=== PATIENT | female | born 1955 | race Caucasian/White ===

== ENCOUNTER 2016-07-06 06:16 | Inpatient (IN) | payer BC ==
[2016-06-22 09:48] VITALS: BMI 26.0
--- NOTE | 2016-06-22 10:26 | PAT Medication Instructions ---
Service Date Jun 22, 2016. Current Home Medication List Acetaminophen Tab (Tylenol), 650 MG PO Q6 PRN for Pain Albuterol (Proair Hfa), 2 PUFFS INH Q4-6H PRN for PRN Budesonide/Formoterol Fumarate (Symbicort 160/4.5 Inhaler ), 2 PUFFS INH BID Escitalopram (Lexapro), 20 MG PO QAM Hydrocodone/Acetaminophen 5MG/325MG (Covert 5MG/325MG), 1 TABLET PO HS PRN for Pain Lorazepam (Ativan), 0.5 MG PO BID PRN for PRN Montelukast Sodium (Singulair), 10 MG PO QAM Naproxen (Aleve), 220 MG PO BID Omeprazole (Prilosec), 20 MG PO QAM Medication Instructions For Your Scheduled Surgery - Hold the following medications 7-10 days prior to surgery per surgeon instructions: Naproxen (Aleve), 220 MG PO BID - Take the following medications the morning of surgery with a sip of water: Omeprazole (Prilosec), 20 MG PO QAM Montelukast Sodium (Singulair), 10 MG PO QAM Lorazepam (Ativan), 0.5 MG PO BID PRN for PRN (if needed) Escitalopram (Lexapro), 20 MG PO QAM Budesonide/Formoterol Fumarate (Symbicort 160/4.5 Inhaler ), 2 PUFFS INH BID Albuterol (Proair Hfa), 2 PUFFS INH Q4-6H PRN for PRN (bring with you to hospital on day of surgery) Acetaminophen Tab (Tylenol), 650 MG PO Q6 PRN for Pain (if needed) - Take the following medications as scheduled the night before surgery: Lorazepam (Ativan), 0.5 MG PO BID PRN for PRN Hydrocodone/Acetaminophen 5MG/325MG (Covert 5MG/325MG), 1 TABLET PO HS PRN for Pain Budesonide/Formoterol Fumarate (Symbicort 160/4.5 Inhaler ), 2 PUFFS INH BID Albuterol (Proair Hfa), 2 PUFFS INH Q4-6H PRN for PRN Acetaminophen Tab (Tylenol), 650 MG PO Q6 PRN for Pain If you have any questions please call us at [phone] or [phone] ( [place]) or [phone]
[2016-06-22 10:59] LABS: BASO % 0.6 %; BASO ABS # 0.04 K/uL (0-0.2); COMPLETE YES; EOS % 0.9 %; HEMATOCRIT 40.4 % (37-47); IG% 0.1 %; LYMPH % 40.8 %; LYMPH ABS # 2.72 K/uL (1.2-3.4); MEAN CELL VOLUME 92.4 fL (80-100); MEAN CORPUSCULAR HGB CONC 34.7 g/dl (32-36); MEAN PLATELET VOLUME 9.8 fL (7.4-10.4); MONO % 4.2 %; NEUT % 53.4 %; PLATELET COUNT 259 K/uL (130-400); RED BLOOD COUNT 4.37 M/uL (4.2-5.4); WHITE BLOOD COUNT 6.67 K/uL (4.8-10.8)
[2016-06-22 11:07] LABS: URINE APPEARANCE CLEAR (CLEAR); URINE BILIRUBIN NEG (NEG); URINE COLOR YELLOW; URINE EPITHELIAL CELL AUTO 0-5 /lpf (0-5); URINE NITRITE NEG (NEG); URINE SPECIFIC GRAVITY 1.004 (1.000-1.030); UROBILINOGEN NEG (NEG)
--- NOTE | 2016-06-22 11:08 | DIAGNOSTIC IMAGING REPORT ---
CHEST PREADMISSION(PA/LAT) CLINICAL HISTORY: Preoperative chest COMPARISON STUDY: No previous studies for comparison. FINDINGS: The cardiac and mediastinal contours are normal. There is no evidence of focal pulmonary consolidation. There is no evidence of failure. No pleural effusions are visualized.[ IMPRESSION: No active disease in the chest. Electronically signed by: Domingo Garza M.D. 06/22/2016 11:06 AM Dictated Date/Time: 06/22/2016 11:06 AM
[2016-06-22 11:12] LABS: MANUAL MICROSCOPIC REQUIRED? NO; REVIEW REQ? NO
[2016-06-22 11:15] LABS: PROTHROMBIN TIME (PATIENT) 10.9 SECONDS (9.0-12.0)
[2016-06-22 11:23] LABS: BUN/CREATININE RATIO 13.3 (10-20); CREATININE 0.66 mg/dl (0.60-1.20); POTASSIUM 4.2 mmol/L (3.5-5.1)
[2016-06-22 11:48] LABS: ESTIMATED AVERAGE GLUCOSE 128 mg/dl; HA1C FLAG Normal (Normal)
--- NOTE | 2016-07-05 08:46 | HISTORY & PHYSICAL EXAMINATION ---
DATE OF ADMISSION: 07/06/2016 CHIEF COMPLAINT: Left hip pain. HISTORY OF PRESENT ILLNESS: The patient is a 60-year-old female with known osteoarthritis about her left hip. She had a recent intraarticular corticosteroid injection with short term relief. She continues to have pain and disability with activities of daily living. She has pain with prolonged weightbearing and standing activities. She has difficulty with any kneeling, bending, or squatting activities. She now desires to proceed with left total hip arthroplasty. PAST MEDICAL HISTORY: Asthma, depression, acid reflux, breast cancer. PAST SURGICAL HISTORY: Bunionectomy, tonsillectomy, tubal ligation, left breast surgery. MEDICATIONS: Omeprazole, Lexapro, lorazepam 0.5 mg t.i.d. p.r.n., Singulair daily, Tylenol p.r.n., Aleve p.r.n. ALLERGIES: LATEX ALLERGY. SOCIAL HISTORY AND REVIEW OF SYSTEMS: Noncontributory. PHYSICAL EXAMINATION: GENERAL: Well-nourished, well-developed female who appears stated age. HEENT: Normocephalic, atraumatic, extraocular movements intact, oropharynx pink and moist. NECK: Supple without adenopathy. LUNGS: Clear to auscultation bilaterally. HEART: Regular rate and rhythm. ABDOMEN: Soft, nontender, nondistended. EXTREMITIES: The upper extremities are within normal limits. Left hip demonstrates limited range of motion. There is limitation of active and passive internal/external rotation with pain at end range. X-RAYS: X-rays were reviewed. Her left hip demonstrates moderate to severe osteoarthritis with near complete loss of the joint space. There is a superior osteophyte about the acetabulum. ASSESSMENT: Left hip degenerative joint disease. PLAN: Risks versus benefits were discussed. Consent was obtained. The patient's primary care physician is Dr. Oxana Otto from [facility]. Will proceed with left total hip arthroplasty upon preoperative workup and medical clearance.
[~2016-07-06] VITALS: Ht 165.1 cm; Wt 71.6 kg
[2016-07-06] VITALS (11 sets, daily range): BP systolic 90–120; BP diastolic 58–69; PULSE 54–83; TEMP 36.4–37.1; O2SAT 95–100; Ht 165.1 cm; Wt 71.6 kg
[~2016-07-06 06:16] MED LIST: ACET325T96 PO; ACETAMINOPHEN 500 MG TAB PO SCH; ALBU1AER9 INH; CEFAZOLIN 1000MG/55 ML D5W 55 ML IV SCH; CeleBREX 200 MG CAP PO SCH; DEXAMETHASONE 4 MG TAB PO SCH; ESCI10TA17 PO; FAMOTIDINE 20 MG TAB PO SCH; GABAPENTIN 300 MG CAP PO SCH; HYDR-5688 PO; LACTATED RINGER'S 1000ML 1,000 ML IV SCH; LACTATED RINGER'S 1000ML 500 ML IV ONE; LACTATED RINGER'S 1000ML IV SCH; LORA-741 PO; METOCLOPRAMIDE HCL 10 MG TAB PO SCH; MONT1TAB3 PO; NAPR1TAB9 PO; PRLSR20 PO; ROPIVACAINE 5MG/ML 30 ML 150 MG, BUPIVACAINE/EPINEPHR 0.5% MPF 30 ML, KETOROLAC TROMETH... INFIL SCH; SYMIN160 INH
[2016-07-06] MEDS ORDERED: BUPIVACAINE 0.5 % 5 MG/1 ML PF 10ML VIAL ONE (06:23)
[2016-07-06] MEDS: TRANEXAMIC ACID INJ 1,000 MG in SODIUM CHLORIDE 0.9% 100ML 100 ML IV SCH ×2 (06:30→07:17)
--- NOTE | 2016-07-06 07:31 | History & Physical Bridge Note ---
H&P Re-Evaluation Bridge Note: I have examined the patient, reviewed the History & Physical and in the interval since the performance of the History & Physical I have noted the following changes of clinical significance: No changes noted
[2016-07-06] MEDS ORDERED: PROPOFOL IV EMULSION 10 MG/ML 20 ML VIAL IV ONE (07:58)
[2016-07-06] MEDS ORDERED: LIDOCAINE HCL 2% 2 ML VIAL (20MG/ML) ONE (07:58)
[2016-07-06] MEDS ORDERED: BACITRACIN 50000 UNIT VIAL ONE (07:58)
[2016-07-06] MEDS ORDERED: POVIDONE-IODINE OP SOLN 30 ML BTL ONE (07:58)
[2016-07-06] MEDS ORDERED: FENTANYL CITRATE INJ 50 MCG/1 ML 2 ML VIAL ONE (07:58)
[2016-07-06] MEDS ORDERED: ORTHO JOINT ANESTHETIC ONE (07:58)
[2016-07-06] MEDS ORDERED: MIDAZOLAM HCL 1 MG/ML 2ML VIAL ONE ×2 (07:58→08:27)
[2016-07-06] MEDS ORDERED: EpHEDrine SULFATE INJ 50 MG/ML AMP ONE (08:30)
[2016-07-06] MEDS ORDERED: ONDANSETRON INJ 2 MG/ML 2 ML VIAL IV PRN ×2 (08:45→09:30)
[2016-07-06] MEDS ORDERED: MEPERIDINE HCL 25 MG/ML CARP IV PRN (08:45)
[2016-07-06] MEDS ORDERED: MoRPHine SULFATE 10 MG/ML CARP/VIAL IV PRN ×2 (08:45→11:45)
[2016-07-06] MEDS ORDERED: FENTANYL CITRATE INJ 50 MCG/1 ML 2 ML VIAL IV PRN (08:45)
[2016-07-06] MEDS ORDERED: ATROPINE SULFATE 0.1 MG/ML 5ML SYR IV PRN (08:45)
[2016-07-06] MEDS ORDERED: EpHEDrine SULFATE INJ 50 MG/ML AMP IV PRN (08:45)
--- NOTE | 2016-07-06 08:59 | [facility] Post Operative Brief Note ---
Immediate Operative Summary Operative Date Jul 06, 2016. Pre-Operative Diagnosis Left Hip Degenerative Joint Disease Post-Operative Diagnosis Left Hip Degenerative Joint Disease Procedure(s) Performed Left Total Hip Arthroplasty Surgeon Dr. Kristian Carrington Stone Driller Surgeon(s) Ralph Ayala PA-C Estimated Blood Loss 50ml Findings oa Specimens A. Left Femoral Head Disposition Recovery Room / PACU
[2016-07-06] MEDS ORDERED: TRAMADOL HCL 50 MG TAB PO PRN (09:30)
[2016-07-06] MEDS ORDERED: ALBUTEROL HFA 8 GM INHALER INH PRN (09:30)
[2016-07-06] MEDS ORDERED: ALUMINUM/MAGNESIUM/SIMETH (MAALOX MAX) 30 ML UDC PO PRN (09:30)
[2016-07-06] MEDS ORDERED: MAGNESIUM HYDROXIDE SUSP 30 ML UDC PO PRN (09:30)
[2016-07-06] MEDS ORDERED: ZOLPIDEM TARTRATE 5 MG TAB PO PRN (09:30)
[2016-07-06] MEDS ORDERED: MoRPHine SULFATE 2 MG/ML CARP IV PRN (09:30)
[2016-07-06] MEDS ORDERED: METOCLOPRAMIDE HCL INJ 5 MG/ML 2 ML VIAL IV PRN (09:30)
--- NOTE | 2016-07-06 10:18 | DIAGNOSTIC IMAGING REPORT ---
AP PELVIS, CROSSTABLE LATERAL LEFT HIP History: Left total hip arthroplasty. Degenerative arthritis. Postop. FINDINGS: The patient is status post a left total hip arthroplasty. The hardware is intact. No fracture or dislocation. Skin katja and surgical drains are in place. IMPRESSION: Left total hip arthroplasty. No evidence for hardware complication. Electronically signed by: Sebastian Main M.D. 07/06/2016 10:16 AM Dictated Date/Time: 07/06/2016 10:16 AM
--- NOTE | 2016-07-06 10:21 | OPERATIVE REPORT ---
DATE OF OPERATION: 07/06/2016 PREOPERATIVE DIAGNOSIS: Osteoarthritis left hip. POSTOPERATIVE DIAGNOSIS: Osteoarthritis left hip. PROCEDURE: Left connective total hip arthroplasty. SURGEON: Dr. Carrington. CHILD DEVELOPMENT PROFESSOR: Ralph Ayala PA-C. ANESTHESIA: Spinal. COMPLICATIONS: None. OPERATION AND FINDINGS: PROCEDURE: Following induction of adequate spinal anesthesia, the patient was placed in right lateral decubitus position and a left Mita-Langenbeck incision was made. Subcutaneous tissue was sharply dissected. Electrocautery used for hemostasis. The fascia was incised throughout the length of the wound and a vallejo scissor placed beneath the short external rotators. The pyriformis was tagged with #1 Vicryl. The short external rotators were divided from the posterior aspect of the femur using electrocautery. These were swept posteriorly. A T-capsulotomy incision was made and the hip was dislocated using a combination of flexion, adduction, and internal rotation. Exposure of the femoral neck with old-style Hohmann and a blunt Hohmann was carried out and a femoral rasp was utilized as a guide for making the appropriate level femoral neck cut. This bone fragment was removed and reserved on the back table. Next, attention was turned to the acetabulum where bone hook was used to retract the femur while the offset retractors were placed anterior and posteriorly. A double-angled Hohmann was placed in superior and anterior position exposing the acetabulum nicely. Acetabular labrum as well as posterior capsule elements were removed using a long knife and a long pickup. Fovea centralis was cleared of all soft tissue. Sequential reamings were carried up to a size 50 and decision was made to proceed with impaction of a size 50 trabecular metal cup. This was impacted and held using a single 35 mm bone screw. The acetabular liner was placed with 15 of elevated posterior wall in the superior and posterior position. Next, attention was turned to the femoral portion of the case where a Bovie and pickup was used to further clear short external rotators from their insertion on the femur. Box osteotome was used to gain access to the femoral canal and the T-handled rasp and a rattail rasp were used to further open and lateral the canal. Sequentially raspings were carried up to a size 3 which gave good fit and fill of the proximal femur. A trial reduction was carried out and 127 degree offset femoral neck component was chosen as the size to be used. A -2.5 x 36 mm ceramic femoral head was impacted into position, +0 head was utilized. The trial reduction was stable in all degrees of rotation with no [id number] impingement. The hip was dislocated. The trial components were removed and the final femoral stem, neck, and femoral head combination were assembled on the back table and impacted into position. Hip was relocated. Range of motion checked once again successful and the wound was irrigated. The pyriformis repaired to the greater trochanter using #1 Vicryl [id number] suture. A Hemovac drain was placed and the fascia was closed using #1 Vicryl, subcutaneous tissue was closed using 0 Dexon, and skin was closed with katja. Sterile dressing of Adaptic, 4 x 4's, ABDs, and foam tape was applied. The patient tolerated the procedure well. Recovery room stable. Due to the complex nature of the procedure, the entire surgery was performed with the operational assistance of Ralph Ayala PA-C. The housing assistant, under direct supervision, was involved in the actual performance of all aspects of the surgical procedure including hemostasis, tissue retraction and incision, instrument management, patient positioning, and wound closure. I attest to the content of the Intraoperative Record and any orders documented therein. Any exceptio ns are noted below.
--- NOTE | 2016-07-06 10:41 | Anesthesiology Progress Note ---
Anesthesia Post Op Note Date & Time Jul 06, 2016 at 10:40 Vital Signs Pain Intensity: 0 Vital Signs Past 12 Hours Date Time Temp Pulse Resp B/P Pulse Ox O2 Delivery O2 Flow Rate FiO2 07/06/16 10:25 37.0 74 12 99/61 96 Nasal Cannula 2 07/06/16 10:15 74 19 96/60 93 Nasal Cannula 2 07/06/16 10:05 73 18 98/57 95 Nasal Cannula 2 07/06/16 09:55 71 16 88/60 98 Nasal Cannula 2 07/06/16 09:45 75 16 95/57 98 Mask 10 07/06/16 09:35 81 19 86/61 98 Mask 10 07/06/16 09:26 36.8 84 20 93/64 100 Mask 10 07/06/16 06:47 36.5 70 18 105/60 96 Room Air Notes Mental Status: alert / awake / arousable, participated in evaluation Pt Amnestic to Procedure: Yes Nausea / Vomiting: adequately controlled Pain: adequately controlled Airway Patency, RR, SpO2: stable & adequate BP & HR: stable & adequate Hydration State: stable & adequate Neuraxial Anesthesia: was administered, sensory block is resolving Anesthetic Complications: no major complications apparent
[2016-07-06] MEDS ORDERED: MoRPHine SULFATE 4 MG/ML 1 ML CARP\\VIAL IV PRN (11:45)
[2016-07-06] MEDS: D5W AND 1/2NSS + 20MEQ KCL 1,000 ML IV SCH ×2 (12:53→21:13)
[2016-07-06] MEDS: KETOROLAC TROMETHAMINE 30 MG/ML VIAL IV. SCH ×3 (12:54→23:16)
[2016-07-06] MEDS: FERROUS GLUCONATE 324 MG TAB PO SCH ×2 (12:54→17:50)
[2016-07-06] MEDS: CEFAZOLIN IV 1,000 MG in DEXTROSE 5% 50ML 50 ML IV SCH ×2 (15:59→23:16)
[2016-07-06] MEDS: HYDROCODONE/ACETAMOPHEN 5/325MG TAB PO PRN ×2 (16:01→21:15)
[2016-07-06] MEDS: BUDESONIDE/FORMOTEROL FUMARATE 160/4.5 60 PUFFS/INHALER INH SCH (21:11)
[2016-07-06] MEDS: DOCUSATE SODIUM 100 MG CAP PO SCH (21:12)
[2016-07-06] MEDS: PREGABALIN 75 MG CAP PO SCH (21:12)
[2016-07-06] MEDS: ASPIRIN 81 MG ECTAB PO SCH (21:12)
[2016-07-06] MEDS: LORAZEPAM 0.5 MG TAB PO PRN (21:16)
[2016-07-07 03:25] VITALS: BP 92/56; PULSE 61; TEMP 36.8; O2SAT 94
[2016-07-07] MEDS: KETOROLAC TROMETHAMINE 30 MG/ML VIAL IV. SCH (05:48)
[2016-07-07 06:22] LABS: COMPLETE YES; EOS % 0.1 %; HEMATOCRIT 34.7 % (37-47); IG% 0.3 %; LYMPH % 16.5 %; LYMPH ABS # 2.17 K/uL (1.2-3.4); MEAN CORPUSCULAR HEMOGLOBIN 31.8 pg (25-34); MEAN CORPUSCULAR HGB CONC 34.6 g/dl (32-36); MEAN PLATELET VOLUME 9.8 fL (7.4-10.4); MONO % 3.6 %; NEUT % 79.5 %; PLATELET COUNT 215 K/uL (130-400); RED BLOOD COUNT 3.77 M/uL (4.2-5.4); WHITE BLOOD COUNT 13.17 K/uL (4.8-10.8)
[2016-07-07 06:59] LABS: BUN/CREATININE RATIO 12.4 (10-20); CALCIUM 8.7 mg/dl (8.5-10.1); CREATININE 0.79 mg/dl (0.60-1.20); POTASSIUM 4.1 mmol/L (3.5-5.1)
[2016-07-07 07:02] VITALS: BP 109/66; PULSE 62; TEMP 36.9; O2SAT 92
[2016-07-07] MEDS ORDERED: DEXAMETHASONE INJ 10 MG in SYRINGE 0 ML IV ONE (07:30)
[2016-07-07] MEDS: D5W AND 1/2NSS + 20MEQ KCL 1,000 ML IV SCH (07:54)
--- NOTE | 2016-07-07 07:57 | Orthopedic Progress Note ---
Orthopedic Progress Note Date of Service Jul 07, 2016. Subjective Post OP Day: 1 Reports: feeling well Objective calves soft nontender, N/V intact, dressing C/D/I (Hemovac d/c'd), toes mobile Date Time Temp Pulse Resp B/P Pulse Ox O2 Delivery O2 Flow Rate FiO2 07/07/16 07:02 36.9 62 17 109/66 92 Room Air 07/07/16 03:25 36.8 61 14 92/56 94 Room Air 07/06/16 23:25 36.4 54 16 107/65 98 Room Air 07/06/16 19:45 Room Air 07/06/16 19:36 36.5 75 18 120/62 96 Room Air 07/06/16 15:08 36.8 82 18 108/58 97 Nasal Cannula 2.0 07/06/16 13:45 76 16 93/62 95 Nasal Cannula 2.0 07/06/16 12:45 36.6 83 18 100/63 96 Nasal Cannula 2.0 07/06/16 11:45 37.1 82 19 108/69 95 Nasal Cannula 2.0 07/06/16 11:15 36.5 77 18 105/69 96 Nasal Cannula 2.0 07/06/16 11:15 Nasal Cannula 2.0 07/06/16 11:10 100 Nasal Cannula 2.0 07/06/16 10:45 36.4 77 16 90/59 100 Nasal Cannula 2.0 07/06/16 10:35 77 14 97/57 94 Nasal Cannula 2 07/06/16 10:25 37.0 74 12 99/61 96 Nasal Cannula 2 07/06/16 10:15 74 19 96/60 93 Nasal Cannula 2 07/06/16 10:05 73 18 98/57 95 Nasal Cannula 2 07/06/16 09:55 71 16 88/60 98 Nasal Cannula 2 07/06/16 09:45 75 16 95/57 98 Mask 10 07/06/16 09:35 81 19 86/61 98 Mask 10 07/06/16 09:26 36.8 84 20 93/64 100 Mask 10 Laboratory Results 24 Hours: Test 07/07/16 05:47 White Blood Count 13.17 K/uL Red Blood Count 3.77 M/uL Hemoglobin 12.0 g/dL Hematocrit 34.7 % Mean Corpuscular Volume 92.0 fL Mean Corpuscular Hemoglobin 31.8 pg Mean Corpuscular Hemoglobin Concent 34.6 g/dl Platelet Count 215 K/uL Mean Platelet Volume 9.8 fL Neutrophils (%) (Auto) 79.5 % Lymphocytes (%) (Auto) 16.5 % Monocytes (%) (Auto) 3.6 % Eosinophils (%) (Auto) 0.1 % Basophils (%) (Auto) 0.0 % Neutrophils # (Auto) 10.47 K/uL Lymphocytes # (Auto) 2.17 K/uL Monocytes # (Auto) 0.48 K/uL Eosinophils # (Auto) 0.01 K/uL Basophils # (Auto) 0.00 K/uL Assessment & Plan Assessment: 60 yo female stable POD #1 s/p left VALDEZ Plan: 1. Med management 2. DVT prophylaxis- ASA, TEDs, SCDs 3. PT/OT 4. D/C planning- home w/ OPPT
[2016-07-07] MEDS ORDERED: HYDR-5688 PO (08:03)
[2016-07-07] MEDS ORDERED: ASPEC81 PO (08:03)
[2016-07-07] MEDS ORDERED: CLB200 PO (08:03)
[2016-07-07] MEDS ORDERED: ONDA8TAB12 PO (08:03)
--- NOTE | 2016-07-07 08:05 | Discharge Instructions ---
Discharge Instructions Date of Service Jul 07, 2016. Admission Reason for Admission: Left Hip Osteoarthritis Discharge Discharge Diagnosis / Problem: Left hip arthritis Discharge Goals Goal(s): Decrease discomfort, Improve function Activity Recommendations Activity Limitations: as noted below Weightbearing Status: Left weightbearing (as tolerated) . Instructions / Follow-Up Instructions / Follow-Up ACTIVITY RECOMMENDATIONS: SELF CARE INSTRUCTIONS AFTER TOTAL HIP REPLACEMENT Until the incision and soft tissues around your hip have healed, there is a possibility that the hip prosthesis could dislocate. A. Observe the following precautions to prevent dislocation: 1. Don't bend your hip greater than 90 degrees. 2. Avoid crossing your legs or ankles while standing or lying. 3. Sit with your feet placed 6 inches apart. 4. When sitting, keep your knees below your hips. Sit on a firm surface, avoid deep, soft chairs and couches. Use an elevated toilet seat in the bathroom. 5. Don't bend over at the waist. Use a long handled shoehorn and a sock aid to help you put on your shoes and socks. A payroll administrative assistant can help you pickling tank operator objects that are too high or too low to reach. 6. Keep car riding to a minimum for at least one month after surgery. B. Your balance may be shaky for a while. Use crutches or a walker until directed by your doctor. C. Use hand rails when walking on stairs. D. Wear low heeled shoes with non-slip soles. E. Be sure that your floors are free of things that could trip you - throw rugs , electrical cords, small objects. Avoid wet and waxed floors, especially with crutches and canes. F. Try to walk several times a day with rest periods between. G. Continue with all the exercises taught to you in the hospital. Again, make walking a part of your daily routine. SPECIAL CARE INSTRUCTIONS: VERY IMPORTANT TO READ AND REVIEW A. You may still be at risk for phlebitis and blood clots. 1. Wear surgical stockings (DIANA hose) for 2 weeks after surgery to improve circulation and reduce swelling. 2. Take Aspirin 81mg twice daily for 4 weeks or as directed by your doctor. This is your blood thinner. 3. High risk patients may be prescribed a stronger blood thinner if necessary. 4. If you are on Coumadin normally, your family doctor/level vial marker should monitor your blood work. Expect a phone call the day of or the day after bloodwork is drawn to adjust your dosage. B. You must take antibiotics before having dental work, bladder, bowel and other surgery. Your doctor will provide you with a permanent card to carry describing precautions. C. Call [facility] if you have a fever, redness or swelling around the incision, cloudy drainage from incision, or sudden increase in pain in your hip, not relieved by your regular pain medication. D. Please call the office at if you have any concerns or questions about your operation or recovery. * YOU MAY SHOWER, NO TUB BATHS UNTIL CLEARED BY YOUR DOCTOR. * WEAR DIANA HOSE 20 HOURS PER DAY FOR 2 WEEKS. * YOU SHOULD USE A WALKER OR CRUTCHES FOR 2-4 WEEKS. THIS WILL HELP PREVENT STRAIN ON YOUR HIP MUSCLE AND ALLOW IT TO HEAL PROPERLY. YOU MAY WEAN TO A CANE TOLERATED. * MOST PATIENTS WILL HAVE HOME NURSING FOR THERAPY. IF YOU DECIDE TO DO OUTPATIENT PHYSICAL THERAPY, PLEASE SCHEDULE THIS 3 TIMES PER WEEK. Silverlon- This is a large adhesive bandage that contains silver ions. This helps your incision heal by fighting off bacteria and protecting it from the outside environment. You are permitted to shower with this dressing. This will remain on your incision for 7 days and then should be removed. Some visible blood or drainage through the dressing window is normal. If there is significant drainage or leaking noted before the 7 days notify your doctor's office immediately. Once removed, keep incision clean and dry. If there is any drainage or redness noted, please call your surgeon. FOLLOW UP VISIT: If appointment is not already scheduled: Please call [facility] to make a follow-up appointment for 2 weeks after your surgery at . Current Hospital Diet Patient's current hospital diet: Regular Diet Discharge Diet Recommended Diet: Regular Diet Procedures Procedures Performed: Left Total Hip Arthroplasty Pending Studies Studies pending at discharge: no Laboratory Results Hemoglobin A1c Test 06/22/16 00:00 Range/Units Estimated Average Glucose 128 mg/dl Hemoglobin A1c 6.1 H 4.5-5.6 % Medical Emergencies . Who to Call and When: Medical Emergencies: If at any time you feel your situation is an emergency, please call 911 immediately. . Non-Emergent Contact Non-Emergency issues call your: Surgeon Call Non-Emergent contact if: temperature is above 101.5, your pain is not controlled, wound has increased drainage, wound has increased redness . "Provider Documentation" section prepared by Ralph Ayala PA-C. VTE Core Measure Inpt VTE Proph given/why not?: Other Anticoagulation (ASA 81mg bid), T.E.D. Stockings, SCD's [place] Drug Monitoring Program Search Results: patient reviewed within database, no issues identified
--- NOTE | 2016-07-07 08:27 | Anesthesiology Progress Note ---
Anesthesia Post Op Note Date & Time Jul 07, 2016 at 08:26 Vital Signs Pain Intensity: 7.0 Vital Signs Past 12 Hours Date Time Temp Pulse Resp B/P Pulse Ox O2 Delivery O2 Flow Rate FiO2 07/07/16 07:02 36.9 62 17 109/66 92 Room Air 07/07/16 03:25 36.8 61 14 92/56 94 Room Air 07/06/16 23:25 36.4 54 16 107/65 98 Room Air Notes Mental Status: alert / awake / arousable, participated in evaluation Pt Amnestic to Procedure: Yes Nausea / Vomiting: adequately controlled Pain: adequately controlled Airway Patency, RR, SpO2: stable & adequate BP & HR: stable & adequate Hydration State: stable & adequate Neuraxial Anesthesia: sensory block resolved Anesthetic Complications: no major complications apparent
[2016-07-07] MEDS ORDERED: ESCITALOPRAM OXALATE 10 MG TAB PO SCH (09:00)
[2016-07-07] MEDS ORDERED: MULTIVITAMIN TAB PO SCH (09:00)
[2016-07-07] MEDS ORDERED: MONTELUKAST SOD 10 MG TAB PO SCH (09:00)
[2016-07-07] MEDS ORDERED: PANTOprazole SOD 40 MG TAB PO SCH (09:00)
[2016-07-07] MEDS: FERROUS GLUCONATE 324 MG TAB PO SCH ×2 (09:31→15:13)
[2016-07-07] MEDS: BUDESONIDE/FORMOTEROL FUMARATE 160/4.5 60 PUFFS/INHALER INH SCH (09:32)
[2016-07-07] MEDS: DOCUSATE SODIUM 100 MG CAP PO SCH (09:32)
[2016-07-07] MEDS: ASPIRIN 81 MG ECTAB PO SCH (09:32)
[2016-07-07] MEDS: PREGABALIN 75 MG CAP PO SCH (09:37)
[2016-07-07] MEDS: LORAZEPAM 0.5 MG TAB PO PRN (09:37)
[2016-07-07 12:19] VITALS: BP 109/66; PULSE 62; TEMP 36.9; O2SAT 92
[2016-07-07] MEDS: HYDROCODONE/ACETAMOPHEN 5/325MG TAB PO PRN (15:14)
[2016-07-07] MEDS ORDERED: CeleBREX 200 MG CAP PO SCH (21:00)
--- NOTE | 2016-07-19 16:49 | DISCHARGE SUMMARY ---
CHIEF COMPLAINT: Left hip pain. Please see complete history and physical examination. HOSPITAL COURSE: The patient underwent left total hip arthroplasty without complication. She tolerated the procedure well and was discharged to recovery room in stable condition. Her postop course was relatively uneventful. Her postoperative pain was reasonably well controlled with a combination of spinal anesthesia, intraoperative joint injection, IV, and oral pain medications. She was started on aspirin for DVT prophylaxis. She also utilized DIANA stockings and SCDs for additional prophylaxis. Her H\T\H was stable and did not require transfusion. Her surgical drain was discontinued on postoperative day 1, her surgical dressing will remain in place for approximately 7 days postoperative. She was discharged home on postoperative day 1. She will continue her physical therapy at home. She will continue her aspirin for DVT prophylaxis and follow up in our office in approximately 10-14 days for initial postop evaluation.
== END 2016-07-07 15:30 | disposition home or self-care (01) | DRG 470 ==
LOC: ENRESERVDT → ENRESERVTM → C.ACU 06:16 → C.3E 06:48
PROC: 0SRB03Z Replacement of Left Hip Joint with Ceramic Synthetic Substitute, Open Approach (ICD-10-PCS; principal; 2016-07-06 08:15)
DX: M16.12 Unilateral primary osteoarthritis, left hip (principal); J45.909 Unspecified asthma, uncomplicated; K21.9 Gastro-esophageal reflux disease without esophagitis; F32.9 Major depressive disorder, single episode, unspecified; F41.9 Anxiety disorder, unspecified; Z79.51 Long term (current) use of inhaled steroids; Z79.891 Long term (current) use of opiate analgesic; Z79.899 Other long term (current) drug therapy

== ENCOUNTER → 2016-08-23 | Outpatient (CLI) | payer BC ==
[~2016-08-23] MED LIST changes: -ACET325T96 PO; -ACETAMINOPHEN 500 MG TAB PO SCH; +ASPEC81 PO; -CEFAZOLIN 1000MG/55 ML D5W 55 ML IV SCH; +CLB200 PO; -CeleBREX 200 MG CAP PO SCH; -DEXAMETHASONE 4 MG TAB PO SCH; -FAMOTIDINE 20 MG TAB PO SCH; -GABAPENTIN 300 MG CAP PO SCH; -LACTATED RINGER'S 1000ML 1,000 ML IV SCH; -LACTATED RINGER'S 1000ML 500 ML IV ONE; -LACTATED RINGER'S 1000ML IV SCH; -METOCLOPRAMIDE HCL 10 MG TAB PO SCH; -NAPR1TAB9 PO; -ROPIVACAINE 5MG/ML 30 ML 150 MG, BUPIVACAINE/EPINEPHR 0.5% MPF 30 ML, KETOROLAC TROMETH... INFIL SCH
--- NOTE | 2016-08-24 14:07 | MAMMOGRAPHY REPORT ---
BILATERAL DIGITAL SCREENING MAMMOGRAM TOMOSYNTHESIS WITH CAD: 08/23/2016 CLINICAL HISTORY: Asymptomatic. Personal history of breast cancer. TECHNIQUE: Breast tomosynthesis in addition to standard 2D mammography was performed. Current study was also evaluated with a Computer Aided Detection (CAD) system. COMPARISON: Comparison is made to exams dated: 06/23/2015 mammogram, 11/24/2013 mammogram, 10/02/2012 m ammogram, 06/12/2012 mammogram, 06/07/2011 mammogram - [facility], and 06/03/2010 mammo gram - [facility]. BREAST COMPOSITION: There are scattered areas of fibroglandular density in both breasts. FINDINGS: No suspicious masses, calcifications, or areas of architectural distortion are noted in e ither breast. There has been no significant interval change compared to prior exams. Linear scar ma rkers denote scars on the left anterior breast right anterior breast, and right axilla. Scattered b ilateral benign-appearing calcifications are not significantly changed. Small circumscribed benign- appearing masses in the left upper outer quadrant are not significantly changed. IMPRESSION: ACR BI-RADS CATEGORY 2: BENIGN There is no mammographic evidence of malignancy. A 1 year screening mammogram is recommended. The p atient will receive written notification of the results. Approximately 10% of breast cancers are not detected with mammography. A negative mammographic repor t should not delay biopsy if a clinically suggestive mass is present. Rachel Samson M.D. ah/:08/24/2016 07:41:25 Sheet Metal Insulator: Leanne COLLADO(R)(M), [facility] letter sent: Normal 1/2 BI-RADS Code: ACR BI-RADS Category 2: Benign
== END | disposition home or self-care (01) ==
LOC: C.MAMM 17:21
PROVIDERS: ATTEND Family Medicine
DX: Z12.31 Encounter for screening mammogram for malignant neoplasm of breast (principal); Z85.3 Personal history of malignant neoplasm of breast